=== PATIENT | female | born 1960 | race Caucasian/White ===

== ENCOUNTER 2016-12-01 14:03 | Emergency (ER) | payer BC, OTHER ==
[2016-12-01 14:19] VITALS: BP 159/82
[2016-12-01] MEDS ORDERED: Furosemide 40 MG/4 ML VIAL IVPUSH ONE (14:47)
--- NOTE | 2016-12-01 15:55 | EDM.PDOC ---
ED HPI GENERAL MEDICAL PROBLEM - General Chief Complaint: General Stated Complaint: SOB, EDEMA Time Seen by Provider: 12/01/16 14:10 - History of Present Illness INITIAL COMMENTS - FREE TEXT/NARRATIVE: complaines of pedal edema, and sob Onset: Gradual Duration: Day(s): Location: Reports: Lower Extremity, Left, Lower Extremity, Right Severity: Moderate Associated Symptoms: Reports: Malaise Thoracic Pain Score (Numeric/FACES): 3 - Related Data Allergies Allergy/AdvReac Type Severity Reaction Status Date / Time No Known Allergies Allergy Verified 12/01/16 14:11 Home Meds: Home Meds Aspirin 325 mg PO DAILY 12/01/16 [History] Doxycycline Hyclate 100 mg PO BID 12/01/16 [History] Hydrocodone/Acetaminophen [Hydrocodon-Acetaminophen 5-325] 1 - 2 tab PO Q4H PRN 12/01/16 [History] atorvaSTATin Calcium [Atorvastatin Calcium] 40 mg PO DAILY 12/01/16 [History] guaiFENesin [Guaifenesin ER] 600 mg PO BID 12/01/16 [History] Past Medical History HEENT History: Reports: Cataract, Retinal Detachment Cardiovascular History: Reports: Heart Murmur, High Cholesterol, Hypertension, SOB on Exertion, Other (See Below) Other Cardiovascular History: quadruple bypass Gastrointestinal History: Reports: Chronic Constipation Psychiatric History: Reports: Anxiety, Depression Endocrine/Metabolic History: Reports: Diabetes, Type II - Past Surgical History HEENT Surgical History: Reports: Cataract Surgery, Detached Retina, LASIK Cardiovascular Surgical History: Reports: Coronary Artery Bypass Social & Family History - Tobacco Use Smoking Status *Q: Former Smoker Used Tobacco, but Quit: Yes Month Tobacco Last Used: november 20 2016 - Caffeine Use Caffeine Use: Reports: None - Recreational Drug Use Recreational Drug Use: No ED ROS GENERAL - Review of Systems Review Of Systems: ROS reveals no pertinent complaints other than HPI. Respiratory: Reports: Shortness of Breath Cardiovascular: Reports: No Symptoms Endocrine: Reports: No Symptoms GI/Abdominal: Reports: No Symptoms Musculoskeletal: Reports: No Symptoms Skin: Reports: No Symptoms Neurological: Reports: No Symptoms Immunologic: Reports: No Symptoms ED EXAM, GENERAL - Physical Exam Exam: See Below Free Text/Narrative:: 3 + pitting edema noted in bilateral lower extremeties. Exam Limited By: No Limitations General Appearance: Alert, WD/WN Nose: Normal Inspection Throat/Mouth: Normal Inspection Head: Atraumatic Neck: Normal Inspection Respiratory/Chest: Decreased Breath Sounds, Crackles, Rales, Rhonchi GI/Abdominal: Normal Bowel Sounds Back Exam: Normal Inspection Extremities: Pedal Edema Neurological: Alert, Oriented Psychiatric: Anxious Course - Vital Signs Last Recorded V/S: Last Vital Signs Temp 98.5 F 12/01/16 14:11 Pulse 104 H 12/01/16 14:11 Resp 16 12/01/16 14:11 BP 159/82 H 12/01/16 14:11 Pulse Ox 94 L 12/01/16 14:11 - Orders/Labs/Meds Orders: Active Orders 24 hr Category Date Time Status EKG Documentation Completion [RC] STAT Care 12/01/16 14:21 Inactive Chest 2V [CR] Stat Exams 12/01/16 14:21 Taken Labs: Laboratory Tests 12/01/16 12/01/16 12/01/16 Range/Units 14:30 14:30 14:45 WBC 18.1 H (5.0-10.0) 10^3/uL RBC 3.12 L (4.00-5.50) 10^6/uL Hgb 9.0 L (12.0-16.0) g/dL Hct 28.7 L (37.0-47.0) % MCV 92.0 (82.0-94.0) fL MCH 28.8 (27.0-32.0) pg MCHC 31.4 L (33.0-38.0) g/dL RDW Coeff of Evita 14.2 (11.0-15.0) % Plt Count 713 H (150-400) 10^3/uL Add Manual Diff Yes Neutrophils % (Manual) 63 (35-85) % Band Neutrophils % 9 H (0-5) % Lymphocytes % (Manual) 19 L (21-55) % Monocytes % (Manual) 4 (2-12) % Eosinophils % (Manual) 5 (0-5) % Absolute Neutrophils 13.03 H (1.80-7.00) 10^3/uL Lymphocytes # (Manual) 3.44 (1.00-4.80) 10^3/uL Monocytes # (Manual) 0.72 (0.00-0.80) 10^3/uL Eosinophils # (Manual) 0.91 H (0.00-0.45) 10^3/uL Platelet Estimate Increased H (ADEQUATE) Sodium 141 (136-145) mEq/L Potassium 5.3 H (3.5-5.0) mEq/L Chloride 106 (98-106) mEq/L Carbon Dioxide 28 (21-32) mmol/L BUN 24 H (7-18) mg/dL Creatinine 1.0 (0.6-1.0) mg/dL Est Cr Clr Drug Dosing 53.20 mL/min Estimated GFR (MDRD) 58 L (>=60) mL/min Glucose 295 H (75-99) mg/dL Calcium 9.3 (8.4-10.1) mg/dL Total Bilirubin 0.3 (0.0-1.0) mg/dL AST 69 H (15-37) U/L ALT 28 (12-78) U/L Alkaline Phosphatase 98 (46-116) U/L Troponin I 0.072 H (0.00-0.06) ng/mL Ksy-N-Dhqhswksvvi Pept 3738 H (0-1000) pg/nL Total Protein 6.9 (6.4-8.2) g/dL Albumin 2.3 L (3.4-5.0) g/dL Urine Color Yellow (YELLOW) Urine Appearance Clear (CLEAR) Urine pH 6.0 (4.5-8.0) Ur Specific [place] 1.016 (1.003-1.020) Urine Protein 100 H (NEGATIVE) mg/dL Urine Glucose (UA) 250 H (NEGATIVE) mg/dL Urine Ketones Negative (NEGATIVE) mg/dL Urine Occult Blood Moderate H (NEGATIVE) Urine Nitrite Negative (NEGATIVE) Urine Bilirubin Negative (NEGATIVE) Urine Urobilinogen 0.2 (0.2-1.0) EU/dL Ur Leukocyte Esterase Negative (NEGATIVE) Urine RBC 10-20 H (0-5) /HPF Urine WBC 0-5 (0-5) /HPF Ur Epithelial Cells Moderate H (NOT SEEN) /HPF Meds: Medications Discontinued Medications Generic Name Dose Route Start Last Admin Trade Name Freq PRN Reason Stop Dose Admin Furosemide 60 mg 12/01/16 14:47 12/01/16 15:02 Lasix IVPUSH 12/01/16 14:48 60 mg ONETIME ONE Administration Departure - Departure Time of Disposition: 15:54 (I spoke with Dr. Brown who instructed the patient fto follow up with him at her regularly scheduled appointment. Will start Lasix 40 po bid at his request.) Disposition: Home, Self-Care 01 Condition: Fair Clinical Impression: Pedal edema, CHF (congestive heart failure), CHF, Congestive heart failure - Discharge Information Forms: ED Department Discharge Additional Instructions: Take your medications as prescribed. See you surgeon at your regularly scheduled appointment. - My Orders Last 24 Hours: My Active Orders 12/01/16 14:21 EKG Documentation Completion [RC] STAT Chest 2V [CR] Stat - Assessment/Plan Last 24 Hours: My Active Orders 12/01/16 14:21 EKG Documentation Completion [RC] STAT Chest 2V [CR] Stat
== END 2016-12-01 16:03 | disposition home or self-care (01) ==
LOC: CC.ED 14:03
DX: I11.0 Hypertensive heart disease with heart failure (principal); I50.9 Heart failure, unspecified; E78.00 Pure hypercholesterolemia, unspecified; E11.9 Type 2 diabetes mellitus without complications; Z98.49 Cataract extraction status, unspecified eye; Z95.1 Presence of aortocoronary bypass graft; Z79.82 Long term (current) use of aspirin; Z87.891 Personal history of nicotine dependence; Z79.899 Other long term (current) drug therapy
CPT/HCPCS: 36415; 71020; 80053; 81001; 83880; 84484; 85025; 93005; 96374; 99285; J1940